=== PATIENT | female | born 1990 | race Caucasian/White ===

== ENCOUNTER 2019-02-25 21:15 | Emergency (ER) | payer OTHER ==
[~2019-02-25] VITALS: Ht 170.2 cm; Wt 68.9 kg
--- NOTE | 2019-02-25 21:55 | NUR ---
Dr. Phillip at bedside for MSE
[2019-02-25] MEDS ORDERED: IBUPROFEN 600 MG TABLET ONE (22:08)
[2019-02-25] MEDS ORDERED: IBUPROFEN 600 MG TABLET PO ONE (22:15)
[2019-02-25 22:32] LABS: *BILIRUBIN,URIN NEGATIVE (NEGATIVE); *BLOOD, URINE 2+ (NEGATIVE); *CLARITY,URINE SLIGHTLY CLOUDY (CLEAR); *COLOR,URINE YELLOW (YELLOW); *KETONES,URINE NEGATIVE (NEGATIVE); *UROBILINOGEN,URINE 0.2 E.U./dl (NORMAL); LEUKOCYTE ESTERASE ,URINE TRACE (NEGATIVE); NITRITE, URINE NEGATIVE (NEGATIVE); UGLUCOSE NEGATIVE (NEGATIVE)
[2019-02-25 22:33] LABS: *URINE HCG, QUAL NEGATIVE (NEGATIVE)
[2019-02-25 22:39] LABS: BACTERIA,URINE FEW /HPF (NONE SEEN); SQUAMOUS EPITHELIAL CELL,UR MANY /HPF (NONE SEEN)
[2019-02-25 22:40] LABS: MUCUS,URINE MODERATE /LPF (0-FEW)
--- NOTE | 2019-02-25 22:57 | NUR ---
Patient discharged to home in stable conditon. Written and verbal after care instructions given. Patient verbalizes understanding of instructions. Patient ambulating with steady gait
[2019-02-25 22:58] VITALS: BP 116/69
== END 2019-02-25 22:57 | disposition home or self-care (01) ==
LOC: ER 21:15
DX: S60.812A Abrasion of left wrist, initial encounter (principal); S60.811A Abrasion of right wrist, initial encounter; S13.4XXA Sprain of ligaments of cervical spine, initial encounter; S39.91XA Unspecified injury of abdomen, initial encounter; R51 Headache; V49.9XXA Car occupant (driver) (passenger) injured in unspecified traffic accident, initial encounter; Y93.89 Activity, other specified; Y92.89 Other specified places as the place of occurrence of the external cause; Y99.8 Other external cause status
CPT/HCPCS: 84703; 87086; A4663